=== PATIENT | male | born 1980 | race Two or more races ===

== ENCOUNTER 2025-07-21 15:19 | Emergency (ER) | payer OTHER ==
[~2025-07-21] VITALS: Ht 170.2 cm; Wt 74.8 kg
[2025-07-21 15:51] VITALS: BP 120/75; O2SAT 98
[2025-07-21] MEDS ORDERED: KETOROLAC TROMETHAMINE 30 MG VIAL ONE (16:07)
[2025-07-21] MEDS ORDERED: KETOROLAC TROMETHAMINE 30 MG VIAL IM ONE (16:15)
[2025-07-21] MEDS ORDERED: DICLOFENAC SODI50 MG PO (19:37)
== END 2025-07-21 20:25 ==
LOC: ER 15:19
DX: S90.01XA Contusion of right ankle, initial encounter (principal); W10.8XXA Fall (on) (from) other stairs and steps, initial encounter; Y93.89 Activity, other specified; Y92.89 Other specified places as the place of occurrence of the external cause; Y99.9 Unspecified external cause status